=== PATIENT | female | born 1950 | race Caucasian/White ===

== ENCOUNTER 2018-11-30 07:49 | Day surgery (SDC) | payer MEDICARE, OTHER ==
[~2018-11-30 07:49] MED LIST: ASPI325 PO; BENTYL20 MG PO; CLOP75 PO; Desyrel150 MG PO; FENO145 PO; GABA300; GABA300 PO; GABA600 PO; HYDACE10B PO; IMIP25 PO; IMIP50 PO; LEVSOD100 PO; LINZESS290 MCG PO; Norco 10-325 T1 EACH PO; OMEP20ER PO
[2018-11-30 08:03] LABS: Hematocrit 40.1 % (33.0-51.0); Hemoglobin 13.9 g/dL (11.5-16.0); Mean Corpuscular HGB 32.1 pg (26.0-34.0); Mean Corpuscular HGB Conc 34.7 g/dL (31.5-36.5); Mean Corpuscular Volume 93 fL (80-100); Mean Platelet Volume 8.7 fL (9.1-12.4); Platelet Count 434 K/mm3 (150-400); RDW Coefficient Variation 12.8 % (11.7-14.2); RDW Standard Deviation 43.5 fL (35.1-46.3); Red Blood Cell Count 4.33 M/mm3 (3.80-5.20); White Blood Cell Count 11.59 K/mm3 (4.00-11.30)
[2018-11-30 08:18] LABS: International Normalized Ratio 0.93; Prothrombin Time Results 9.2 Sec (9.7-11.5)
--- NOTE | 2018-11-30 10:05 | NUR ---
PT AWAKE. BANDAID MID LOWER BACK CDI. VSS. PT REQUESTS COFFEE. ON WAY
--- NOTE | 2018-11-30 10:25 | NUR ---
RN RECEIVED REPORT FROM DR MASON. HE STATES THAT PT NEEDS TO STAY FOR 2HOURS. PT SHOULD TRY TO SIT UP TO PREVENT SOLANO. PT CAN TAKE MED AT HOME FOR SOLANO THAT SHE NORMALLY TAKES.
--- NOTE | 2018-11-30 10:45 | NUR ---
PT CONTINUES TO SIT UP. NO COMPLAINTS. AT BEDSIDE. VSS.
--- NOTE | 2018-11-30 11:35 | NUR ---
Discharge instructions reviewed with patient. Patient verbalizes understanding. Copy given to patient to take home. PT AND DENIES ANY QUESTIONS OR CONCERNS. PT STABLE. VSS.
--- NOTE | 2018-11-30 11:52 | NUR ---
PT HAS ALL PERSONAL BELONGINGS
== END 2018-11-30 22:39 | disposition home or self-care (01) ==
LOC: RAD 07:49
PROVIDERS: Physical Medicine & Rehabilitation Pain Medicine
DX: M96.1 Postlaminectomy syndrome, not elsewhere classified (principal); M43.06 Spondylolysis, lumbar region; M47.25 Other spondylosis with radiculopathy, thoracolumbar region; E78.00 Pure hypercholesterolemia, unspecified; Z79.899 Other long term (current) drug therapy; Z79.891 Long term (current) use of opiate analgesic; Z51.81 Encounter for therapeutic drug level monitoring
CPT/HCPCS: 36415; 62304; 72132; 85027; 85610; 85730; Q9966

== ENCOUNTER → 2019-04-05 | Outpatient (CLI) | payer MEDICARE, OTHER ==
[2019-04-05 11:00] LABS: Source, Urine Clean Catch
[2019-04-05 11:45] LABS: Bilirubin, Urine Neg (Neg); Blood, Urine 4+ (Neg); Glucose Qualitative, Urine Neg (Neg); Ketones, Urine Neg (Neg); Leukocyte Esterase, Urine 1+ (Neg); Nitrite, Urine Neg (Neg); Protein, Urine Neg (Neg); Specific Gravity, Urine 1.005 (1.003-1.022); Urobilinogen, Urine NORM (Normal); pH, Urine 6.5 (5.0-8.0)
[2019-04-05 12:36] LABS: Appearance, Urine Clear (Clear); Color, Urine Yellow (P-Yellow); Red Blood Cells, Urine 0-2 /hpf (0-2); Renal Epithelial Few /hpf (0-Rare); Transitional Epithelial Cells Few /hpf (0-Rare); White Blood Cells, Urine 0-2 /hpf (0-5)
[2019-04-05 12:37] LABS: Bacteria Rare /hpf; Squamous Epithelial Cells Few /hpf (Few)
== END | disposition home or self-care (01) ==
LOC: LAB SHORT 10:58 → LAB 10:58
PROVIDERS: Urology
DX: R31.0 Gross hematuria (principal)
CPT/HCPCS: 81001; 87086

== ENCOUNTER 2019-10-28 08:44 | Day surgery (SDC) | payer MEDICARE, OTHER ==
[~2019-10-28] VITALS: Ht 157.5 cm; Wt 50.0 kg
[~2019-10-28 08:44] MED LIST changes: +Aspir 8181 MG PO; +BUPRENORPHINE HC2 MG SL; +CYCL10 PO; +MILK OF MA400 MG/5 M PO; +PRAM.125 PO; +SUMA25 PO
--- NOTE | 2019-10-28 16:27 | NUR ---
PT DRESSED, AMB TO BTR WELL ON OWN, R RADIAL TR SITE BAND REMOVED, DRESSING PLACED, R WRIST SPLINT PLACED, IV DC'D INTACT, DC PAPERWORK SIGNED, PT DC'D BY WC BY SOFIA OSBORNE W DRIVING PT HOME
== END 2019-10-28 16:41 | disposition home or self-care (01) ==
LOC: MHTC 08:44
PROC: B41G1ZZ Fluoroscopy of Left Lower Extremity Arteries using Low Osmolar Contrast (ICD-10-PCS; principal; 2019-10-28)
PROC: B41F1ZZ Fluoroscopy of Right Lower Extremity Arteries using Low Osmolar Contrast (ICD-10-PCS; principal; 2019-10-28)
PROC: B4101ZZ Fluoroscopy of Abdominal Aorta using Low Osmolar Contrast (ICD-10-PCS; principal; 2019-10-28)
PROC: B4181ZZ Fluoroscopy of Bilateral Renal Arteries using Low Osmolar Contrast (ICD-10-PCS; principal; 2019-10-28)
DX: I70.213 Atherosclerosis of native arteries of extremities with intermittent claudication, bilateral legs (principal); E78.5 Hyperlipidemia, unspecified; F17.210 Nicotine dependence, cigarettes, uncomplicated; Z79.899 Other long term (current) drug therapy; Z88.5 Allergy status to narcotic agent; Z88.8 Allergy status to other drugs, medicaments and biological substances
CPT/HCPCS: 36247; 75625; 75716; 75774; 76937; 99152; 99153; C1769; C1887; C1894; J1644; J2250; J3010; J7030; Q9967

== ENCOUNTER → 2020-10-23 | Outpatient (CLI) | payer MEDICARE, OTHER ==
[~2020-10-23] MED LIST changes: +Norco 5-325 Ta1 EACH PO
[2020-10-23 15:10] LABS: Source, Urine Clean Catch
[2020-10-23 18:00] LABS: Appearance, Urine Hazy (Clear); Bilirubin, Urine Neg (Neg); Blood, Urine 4+ (Neg); Color, Urine Yellow (P-Yellow); Glucose Qualitative, Urine Neg (Neg); Ketones, Urine Neg (Neg); Leukocyte Esterase, Urine 2+ (Neg); Nitrite, Urine Neg (Neg); Protein, Urine Neg (Neg); Urobilinogen, Urine NORM (Normal); pH, Urine 6.5 (5.0-8.0)
[2020-10-23 18:07] LABS: White Blood Cells, Urine TNTC /hpf (0-5)
[2020-10-23 18:08] LABS: Bacteria Few /hpf; Squamous Epithelial Cells Few /hpf (Few)
== END | disposition home or self-care (01) ==
LOC: LAB SRC 15:08 → LAB SHORT 15:08 → LAB FUT 10-23 11:20 → EDSTATUS 10-23 11:20
PROVIDERS: Nurse Practitioner
DX: N39.0 Urinary tract infection, site not specified (principal)
CPT/HCPCS: 81001; 87077; 87086; 87186

== ENCOUNTER → 2020-11-09 | Outpatient (CLI) | payer MEDICARE, OTHER ==
[2020-11-09 12:28] LABS: Source, Urine Clean Catch
[2020-11-09 12:42] LABS: Appearance, Urine Clear (Clear); Bilirubin, Urine Neg (Neg); Blood, Urine Neg (Neg); Color, Urine Yellow (P-Yellow); Glucose Qualitative, Urine Neg (Normal); Ketones, Urine Neg (Neg); Leukocyte Esterase, Urine Neg (Neg); Nitrite, Urine Neg (Neg); Protein, Urine Neg (Neg); Specific Gravity, Urine 1.005 (1.003-1.022); Urobilinogen, Urine NORM (Normal)
== END ==
LOC: LAB SHORT 12:12 → PLD 12:12 → LAB FUT 11-06 13:55
PROVIDERS: Nurse Practitioner
DX: R31.0 Gross hematuria (principal); N39.0 Urinary tract infection, site not specified; Z88.5 Allergy status to narcotic agent; Z88.8 Allergy status to other drugs, medicaments and biological substances; Z91.048 Other nonmedicinal substance allergy status
CPT/HCPCS: 81003; 87086

== ENCOUNTER 2020-12-15 14:26 | Emergency (ER) | payer OTHER, MEDICARE ==
[~2020-12-15] VITALS: Ht 157.5 cm; Wt 53.5 kg
[~2020-12-15 14:26] MED LIST changes: -Norco 5-325 Ta1 EACH PO
[2020-12-15] MEDS ORDERED: Norco 5-325 Ta1 EACH PO (15:30)
== END 2020-12-15 15:35 | disposition home or self-care (01) ==
LOC: ER 14:26
DX: S93.401A Sprain of unspecified ligament of right ankle, initial encounter (principal); F17.200 Nicotine dependence, unspecified, uncomplicated; Z91.09 Other allergy status, other than to drugs and biological substances; Z88.5 Allergy status to narcotic agent; Z88.8 Allergy status to other drugs, medicaments and biological substances; Z79.899 Other long term (current) drug therapy; W01.0XXA Fall on same level from slipping, tripping and stumbling without subsequent striking against object, initial encounter; Y93.02 Activity, running
CPT/HCPCS: 73610; 99283-25

== ENCOUNTER → 2021-07-22 | Outpatient (CLI) | payer MEDICARE ==
[~2021-07-22] MED LIST changes: +Norco 5-325 Ta1 EACH PO
[2021-07-22 15:21] LABS: Alanine Aminotransfer (ALT/SGP 34 U/L (12-78); Albumin, Blood 3.4 g/dL (3.4-5.0); Alk Phos 65 U/L (50-136); Anion Gap 6 mmol/L (6-16); Aspartate Aminotrans (AST/SGOT 26 U/L (12-37); Bilirubin, Total 0.4 mg/dL (0.1-1.0); Blood Urea Nitrogen 13 mg/dL (8-24); Bun/Creatinine Ratio 17.8 (12.0-20.0); CO2, Blood 27 mmol/L (21-32); Calcium, Blood 8.9 mg/dL (8.5-10.1); Chloride, Blood 100 mmol/L (98-108); Creatinine, Blood 0.73 mg/dL (0.40-1.00); Globulin, Blood 3.4 g/dL (2.2-4.0); Glomerular Filtration Rate >60 (60-); Glucose, Blood 86 mg/dL (70-99); Potassium, Blood 4.5 mmol/L (3.5-5.5); Sodium, Blood 133 mmol/L (136-145); Total Protein, Blood 6.8 g/dL (6.4-8.2)
== END | disposition home or self-care (01) ==
LOC: LAB 12:21 → LAB SHORT 12:21
PROVIDERS: Physician Assistant
DX: R53.83 Other fatigue (principal); R63.5 Abnormal weight gain
CPT/HCPCS: 80053; 84443

== ENCOUNTER → 2021-12-11 | Outpatient (CLI) | payer MEDICARE ==
[2021-12-11 21:08] LABS: CHOL/HDL RATIO 3.1; Cholesterol 218 mg/dL (50-200); HDL Cholesterol 71 mg/dL (>39); LDL/HDL RATIO 1.6; Low Density Lipoprotein Chol 116 mg/dL (0-110); Triglycerides 154 mg/dL (30-160); Very Low Density Lipoprot Chol 30 mg/dL (6-32)
== END | disposition home or self-care (01) ==
LOC: LAB SHORT 10:50
PROVIDERS: Nurse Practitioner
DX: Z13.6 Encounter for screening for cardiovascular disorders (principal)
CPT/HCPCS: 80061

== ENCOUNTER → 2022-08-05 | Outpatient (CLI) | payer MEDICARE ==
[2022-08-05 13:57] LABS: Source, Urine Clean Catch
[2022-08-05 15:20] LABS: Appearance, Urine Clear (Clear); Bilirubin, Urine Neg (Neg); Blood, Urine Neg (Neg); Color, Urine Yellow (P-Yellow); Glucose Qualitative, Urine Neg (Neg); Ketones, Urine Neg (Neg); Leukocyte Esterase, Urine 1+ (Neg); Nitrite, Urine Neg (Neg); Protein, Urine Neg (Neg); Urobilinogen, Urine NORM (Normal)
[2022-08-05 17:03] LABS: Bacteria Rare /hpf; Red Blood Cells, Urine 0-2 /hpf (0-2); Squamous Epithelial Cells Rare /hpf (Few); White Blood Cells, Urine 0-2 /hpf (0-5)
== END | disposition home or self-care (01) ==
LOC: LAB SHORT 13:55 → LAB 13:55 → EDSTATUS 08-04 11:50 → LAB FUT 08-04 11:50
PROVIDERS: Urology
DX: N39.0 Urinary tract infection, site not specified (principal)
CPT/HCPCS: 81001; 87086